=== PATIENT | male | born 1995 | race Caucasian/White ===

== ENCOUNTER 2017-12-09 23:02 | Emergency (ER) | payer BC ==
[~2017-12-09] VITALS: Ht 177.8 cm; Wt 117.9 kg
[~2017-12-09 23:02] MED LIST: ARIP30TA11; BUSP15TA3; CLON1TAB5; ESCITALOPRAM 20 MG TABLET
[2017-12-09 23:08] VITALS: BP 126/77
== END 2017-12-10 01:05 | disposition home or self-care (01) ==
LOC: ER 23:02
DX: R07.81 Pleurodynia (principal); Z88.0 Allergy status to penicillin; F20.9 Schizophrenia, unspecified; Z98.890 Other specified postprocedural states
CPT/HCPCS: 71100-TC; A4606; Z7610

== ENCOUNTER 2020-09-13 11:40 | Emergency (ER) | payer BC, MEDICAID ==
[~2020-09-13] VITALS: Ht 182.9 cm; Wt 81.6 kg
[~2020-09-13 11:40] MED LIST changes: -ARIP30TA11; +ARIP30TA21; +CLON1TAB12; -CLON1TAB5
[2020-09-13 11:50] VITALS: BP 120/81
--- NOTE | 2020-09-13 12:27 | NUR ---
Patient discharged to home in stable condition. Written and verbal after care instructions given. Patient verbalizes understanding of instruction.
== END 2020-09-13 12:28 | disposition home or self-care (01) ==
LOC: ER 11:40
DX: Z02.89 Encounter for other administrative examinations (principal); F25.9 Schizoaffective disorder, unspecified; Z98.890 Other specified postprocedural states; Z88.0 Allergy status to penicillin; Z79.899 Other long term (current) drug therapy